=== PATIENT | male | born 2000 | race Caucasian/White ===

== ENCOUNTER 2023-11-24 08:25 | Emergency (ER) | payer SELFPAY ==
[~2023-11-24] VITALS: Ht 188 cm; Wt 104.3 kg
[2023-11-24] MEDS ORDERED: predniSONE 20 MG TABLET ONE (08:40)
[2023-11-24] MEDS ORDERED: IPRATROPIUM NEB FS 0.5 MG/2.5 ML AMPUL.NEB ONE (08:55)
[2023-11-24] MEDS ORDERED: ALBUTEROL FS 2.5 MG/3 ML VIAL.NEB ONE (08:55)
[2023-11-24] MEDS ORDERED: predniSONE 20 MG TABLET PO ONE (09:00)
[2023-11-24] MEDS ORDERED: ALBUTEROL FS 2.5 MG/3 ML VIAL.NEB CONTNEB ONE (09:00)
[2023-11-24] MEDS ORDERED: IPRATROPIUM NEB FS 0.5 MG/2.5 ML AMPUL.NEB NEB ONE (09:00)
[2023-11-24 09:01] VITALS: O2SAT 96
[2023-11-24 09:55] VITALS: O2SAT 99
[2023-11-24] MEDS ORDERED: PRED50TA PO (10:00)
[2023-11-24] MEDS ORDERED: ALBU18HF2 INH (10:00)
[2023-11-24 10:16] VITALS: BP 150/100; TEMP 98; O2SAT 99
== END 2023-11-24 10:25 ==
LOC: ER 08:32
DX: J45.909 Unspecified asthma, uncomplicated (principal)
CPT/HCPCS: 99285; 71045; 94644; J7512